=== PATIENT | male | born 1950 | race Caucasian/White ===

== ENCOUNTER → 2017-11-03 | Outpatient (CLI) | payer BC, MEDICARE ==
[2017-11-03 18:58] LABS: BASOPHILS ABSOLUTE AUTO 0.05 K/mm3 (0.00-0.23); BASOPHILS PERCENT AUTO 1 % (0-2); EOSINOPHILS ABSOLUTE AUTO 0.21 K/mm3 (0.00-0.68); EOSINOPHILS PERCENT AUTO 2 % (0-6); Hematocrit 44.6 % (37.0-53.0); Hemoglobin 14.8 g/dL (13.5-17.5); IMMATURE GRAN ABSOLUTE AUTO 0.03 K/mm3 (0.00-0.10); IMMATURE GRAN PERCENT AUTO 0 % (0-1); LYMPHOCYTES ABSOLUTE AUTO 2.57 K/mm3 (0.84-5.20); LYMPHOCYTES PERCENT AUTO 26 % (21-46); MONOCYTES ABSOLUTE AUTO 0.57 K/mm3 (0.16-1.47); MONOCYTES PERCENT AUTO 6 % (4-13); Mean Corpuscular HGB 29.2 pg (26.0-34.0); Mean Corpuscular HGB Conc 33.2 g/dL (31.5-36.5); Mean Corpuscular Volume 88 fL (80-100); NEUTROPHILS ABSOLUTE AUTO 6.37 K/mm3 (1.96-9.15); NEUTROPHILS PERCENT AUTO 65 % (41-73); Platelet Count 169 K/mm3 (150-400); RDW Coefficient Variation 13.2 % (11.7-14.2); RDW Standard Deviation 42.6 fL (35.1-46.3); Red Blood Cell Count 5.07 M/mm3 (4.30-5.90)
== END ==
LOC: LAB 13:52 → LAB SHORT 13:52
PROVIDERS: Nurse Practitioner Adult Health
DX: D47.3 Essential (hemorrhagic) thrombocythemia (principal); R19.5 Other fecal abnormalities; R42 Dizziness and giddiness
CPT/HCPCS: 85025

== ENCOUNTER 2019-10-12 08:30 | Day surgery (SDC) | payer OTHER, MEDICARE ==
[~2019-10-12] VITALS: Ht 172.7 cm; Wt 89.6 kg
[2019-10-12] MEDS ORDERED: ASPI81CH (09:23)
[2019-10-12] MEDS ORDERED: OMEPRAZOLE20 MG (09:23)
[2019-10-12] MEDS ORDERED: FISH OIL + D31 EACH (09:23)
[2019-10-12] MEDS ORDERED: LISI20 (09:23)
[2019-10-12] MEDS ORDERED: HYDCHL25 (09:23)
[2019-10-12] MEDS ORDERED: TAMS.4ER (09:23)
[2019-10-12] MEDS ORDERED: FLUO10 (09:23)
[2019-10-12] MEDS ORDERED: TIZA4 (09:23)
--- NOTE | 2019-10-12 10:39 | NUR ---
10/12/19 1039 [facility] IS CALLED FOR MEDIPORT PLACEMENT CONFIRMATION. 1039: IMAGING ARRIVES.
== END 2019-10-12 11:35 | disposition home or self-care (01) ==
LOC: ORSCSDS 08:30
PROVIDERS: Surgery
PROC: B5161ZA Fluoroscopy of Right Subclavian Vein using Low Osmolar Contrast, Guidance (ICD-10-PCS; principal; 2019-10-12 10:00)
PROC: 05H533Z Insertion of Infusion Device into Right Subclavian Vein, Percutaneous Approach (ICD-10-PCS; principal; 2019-10-12 10:00)
DX: C18.7 Malignant neoplasm of sigmoid colon (principal); I10 Essential (primary) hypertension; E78.5 Hyperlipidemia, unspecified; K21.9 Gastro-esophageal reflux disease without esophagitis; Z87.891 Personal history of nicotine dependence; Z79.899 Other long term (current) drug therapy
CPT/HCPCS: 77001; C1788; J0690; J1100; J1642; J2250; J2370; J2405; J2704; J7120